=== PATIENT | female | born 1955 ===

== ENCOUNTER 2017-05-09 16:27 | Emergency (ER) | payer MEDICAID ==
[2017-05-09 18:01] VITALS: O2SAT 100
[2017-05-09 18:09] LABS: BASO # 0.1 K/uL (0.0-0.2); EOS # 0.1 K/uL (0.0-0.7); EOS % 2.5 % (0.0-4.0); HEMOGLOBIN 13.8 g/dL (12.0-16.0); LYMPH # 2.6 K/uL (1.0-4.3); LYMPH % 46.2 % (20.0-40.0); MEAN CELL VOLUME 84.9 fl (81.0-99.0); MEAN CORPUSCULAR HEMOGLOBIN 28.3 pg (27.0-31.0); MEAN CORPUSCULAR HGB CONC 33.3 g/dL (33.0-37.0); MEAN PLATELET VOLUME 9.9 fl (7.2-11.7); MONO # 0.7 K/uL (0.0-0.8); NEUT # 2.1 K/uL (1.8-7.0); NEUT % 38.3 % (50.0-75.0); NRBC % 0.1 % (0.0-0.0); RBC 4.88 Mil/uL (3.80-5.20); RED CELL DISTRIBUTION WIDTH 14.6 % (11.5-14.5); WHITE BLOOD COUNT 5.6 K/uL (4.8-10.8)
[2017-05-09 18:10] LABS: BLOOD UREA NITROGEN 18 mg/dl (7-17); CALCIUM 9.2 mg/dL (8.4-10.2); GFR AFRICAN-AMERICAN > 60; GFR NON-AFRICAN AMERICAN 51
--- NOTE | 2017-05-09 18:14 | ED PDOC ---
HPI: General Adult Time Seen by Provider: 05/09/17 16:41 Chief Complaint (Nursing): Chest Pain Chief Complaint (Provider): Elevated Blood Pressure History Per: Patient History/Exam Limitations: no limitations Onset/Duration Of Symptoms: Persistent (1 month ) Current Symptoms Are (Timing): Still Present Additional Complaint(s): Hector Randhawa is a 61 y/o female, with a pertinent past medical history of Hypertension and Diabetes Mellitus, presenting to the ER on 2016 with complaints of elevated blood pressure. Patient reports this presentation has been persistent for about a month, as she describes her blood pressure being unstable despite taking Metoprolol and Lisinopril routinely. Patient also notes having intermittent headaches which have resolved on its own today. She further denies any chest pain or headaches upon arrival, but states she sometimes experiences her legs swelling. Patient also states she feels she is urinating less than she does normally, but resolves when she takes Lisinopril. Patient says she has lost her insurance recently and does not have a primary doctor. Past Medical History Reviewed: Historical Data, Nursing Documentation, Vital Signs Vital Signs: Last Vital Signs Temp 98 F 05/09/17 18:00 Pulse 70 05/09/17 18:00 Resp 18 05/09/17 18:00 BP 157/97 H 05/09/17 18:00 Pulse Ox 100 05/09/17 19:47 - Medical History PMH: Diabetes, HTN, Hypercholesterolemia Denies: Chronic Kidney Disease - Surgical History Surgical History: No Surg Hx - Family History Family History: States: Unknown Family Hx - Social History Current smoker - smoking cessation education provided: No Alcohol: None Drugs: Denies - Home Medications Home Medications: Ambulatory Orders Medication Instructions Recorded Lisinopril [Zestril] 20 mg PO DAILY 05/09/17 Lisinopril/Hydrochlorothiazide 1 each PO DAILY #30 tablet 05/09/17 [Lisinopril-Hctz 20-12.5 mg Tab] Metoprolol Succinate [Metoprolol 100 mg PO DAILY 05/09/17 Succinate] metFORMIN [glucOPHAGE] 500 mg PO BID 05/09/17 - Allergies Allergies/Adverse Reactions: Allergies Allergy/AdvReac Type Severity Reaction Status Date / Time No Known Allergies Allergy Verified 12/15/15 23:21 Review of Systems ROS Statement: Except As Marked, All Systems Reviewed And Found Negative Cardiovascular: Negative for: Chest Pain Neurological: Negative for: Headache Physical Exam - Reviewed Nursing Documentation Reviewed: Yes Vital Signs Reviewed: Yes - Physical Exam Appears: Positive for: Non-toxic, No Acute Distress Head Exam: Positive for: ATRAUMATIC, NORMOCEPHALIC Skin: Positive for: Normal Color. Negative for: Rash Eye Exam: Positive for: Normal appearance, EOMI, PERRL Neck: Positive for: Normal, Painless ROM, Supple Cardiovascular/Chest: Positive for: Regular Rate, Rhythm. Negative for: Murmur Respiratory: Positive for: Normal Breath Sounds. Negative for: Respiratory Distress Gastrointestinal/Abdominal: Positive for: Normal Exam, Soft. Negative for: Tenderness Extremity: Positive for: Normal ROM. Negative for: Deformity, Swelling Neurologic/Psych: Positive for: Alert, Oriented. Negative for: Motor/Sensory Deficits - Laboratory Results Result Diagrams: 05/09/17 17:55 05/09/17 17:55 - ECG O2 Sat by Pulse Oximetry: 100 - Progress Re-evaluation Time: 19:39 Condition: Re-examined, Improved Medical Decision Making Medical Decision Makin:41 Initial Impression- Hypertension (poorly controlled). R/o complications including hypertensive urgency Initial Plan- * EKG * CMP * Troponin * CBC w/ differential * Norvasc 5 mg PO * * Pt will be given appointment by FP resident. Documented by Esau Troncoso, acting as a scribe for Kaylynn Sanchez MD. All medical record entries made by the Scribe were at my direction and personally dictated by me. I have reviewed the chart and agree that the record accurately reflects my personal performance of the history, physical exam, medical decision making, and the department course for this patient. I have also personally directed, reviewed, and agree with the discharge instructions and disposition. Disposition - Clinical Impression Clinical Impression: Hypertension - Patient ED Disposition Is Patient to be Admitted: No Doctor Will See Patient In The: Office Counseled Patient/Family Regarding: Studies Performed, Diagnosis, Need For Followup - Disposition Referrals: [facility] [Outside] Disposition: Routine/Home Disposition Time: 19:40 Condition: GOOD Additional Instructions: Take your medications as instructed. Take new lisinopril with diuretic instead of old lisinopril. Follow up with your PCP in 2- 3 days. Jessica radha medicamentos segn las instrucciones. Jessica nuevo lisinopril con diur lito en lugar de lisinopril julio césar. Segue con [facility]ain PCP en 2-3 lucio. Prescriptions: Lisinopril/Hydrochlorothiazide [Lisinopril-Hctz 20-12.5 mg Tab] 1 each PO DAILY #30 tablet Instructions: Hypertension (ED) Print Language: ECUADOREAN
[2017-05-09 20:28] VITALS: BP 157/82; PULSE 61; RESP 17; TEMP 97.7
--- NOTE | 2017-05-10 12:55 | CARD ---
APPROVED REPORT EKG Measurement Heart [id number] <Conclusion> Normal sinus rhythm Normal ECG
== END 2017-05-09 20:30 | disposition home or self-care (01) ==
LOC: H.ER 16:27
DX: I10 Essential (primary) hypertension (principal); E11.9 Type 2 diabetes mellitus without complications; E78.00 Pure hypercholesterolemia, unspecified; Z79.84 Long term (current) use of oral hypoglycemic drugs